=== PATIENT | female | born 1950 | race Caucasian/White ===

== ENCOUNTER 2018-12-14 05:40 | Day surgery (SDC) | payer OTHER ==
[~2018-12-14] VITALS: Ht 172.7 cm; Wt 83.9 kg
--- NOTE | ~2018-12-14 | O ---
[facility] [place] [address] OPERATIVE REPORT Name: AUBREY REESE Room #: 150-6 [facility] M..#: [id number] Admission: 12/14/18 ������������������ Attend Phys: Juan Ramires MD Discharge: ������������������ Date of : 46 Report #: [id number] THIS REPORT FOR: //name// CC: Damaris Ramires DATE OF SERVICE: 12/14/2018 PREOPERATIVE DIAGNOSES: 1. Left hallux varus. 2. Left second hammer toe deformity. 3. Left third toe mallet toe deformity. POSTOPERATIVE DIAGNOSES: 1. Left hallux varus. 2. Left second hammer toe deformity. 3. Left third toe mallet toe deformity. PROCEDURES: 1. Left foot second toe proximal interphalangeal joint arthrodesis with dorsal capsulotomy and tenotomy. 2. Left foot third toe mallet toe repair. 3. Left foot hallux varus repair. SURGEON: Juan Ramires M.D. AGRONOMY INSTRUCTOR: Lisette Agarwal. ANESTHESIA: General. ESTIMATED BLOOD LOSS: Minimal. DRAINS: None. TOURNIQUET TIME: One hour. DESCRIPTION OF PROCEDURE: The patient was brought to the Operating Room, she was placed under general anesthesia. Once under adequate general anesthesia, her left lower extremity was prepped and draped in sterile manner. The extremity was elevated, exsanguinated, tourniquet placed to 300 mmHg. A dorsal incision over the second proximal interphalangeal and the third distal interphalangeal joint was made. The head of the proximal phalanx and the head of the second toe and the head of the middle phalanx on the third toe was then resected with a sagittal saw. The bases of the middle phalanx and the distal phalanx respectively were then achieved. The drill for the Smart Toe implant was then utilized and subsequently the broaches were utilized for each of the [facility] [address] [place] [address] OPERATIVE REPORT Name: AUBREY REESE Room #: 150-6 [facility]..#: [id number] Admission: 12/14/18 ������������������ Attend Phys: Juan Ramires MD Discharge: ������������������ Date of : 46 Report #: [id number]. A 19 implant was used at the proximal interphalangeal joint of the second toe and a size 11 implant for the distal interphalangeal joint was utilized for the third toe. Excellent fixation and alignment was achieved. A dorsal incision in the first webspace was then made and dissection was carried down to the dorsal second metatarsophalangeal joint. A dorsal capsulotomy and tenotomy was performed with a [place] blade as well as the tenotomy scissors. This then did allow excellent repair of the hammertoe and mallet toe deformities respectively. We then proceeded medially and a medial incision over the metatarsophalangeal joint was made, approximately 4 cm in length was dissected down through soft tissue to the joint capsule, which was then incised, releasing the joint capsule to allow reduction of the hallux varus. Excellent reduction was then able to be achieved. Drill holes were placed for the internal brace and the implant was then placed. The FiberTape was then placed utilizing a suture passer. We did not, however, get good hold on the repair in this fashion. This was tried again with a doubled over suture tape and again did not work. Therefore the mini TightRope was then utilized through the same drill holes. Excellent fixation and repair was then able to be achieved utilizing the FiberTape. Once complete, the wound was irrigated copiously and closed with 4-0 Vicryl in the extensor mechanism of the second and third toes. 2-0 Vicryl was used in the subcutaneous tissues and 3-0 nylon for the skin. The wounds were dressed with Xeroform, 4 x 4s, and a sterile soft compressive dressing was placed. Tourniquet was let down just over one hour. Toes were pink and warm with good capillary refill. There were no complications from the procedure. The patient tolerated the procedure well and went to the recovery room without incident. Fluoroscopy was used throughout the case to verify the position and alignment to be satisfactory. Wounds were dressed with Xeroform, 4 x 4s, and sterile soft compressive dressing was placed. Tourniquet was let down approximately one hour. Toes pink and warm with good capillary refill. There were no complications from the procedure. The patient tolerated the procedure well and went to the recovery room without incident. ��������������������������������������������� ���������������������������������������� By: ��������������������������������������������� [id number] Juan Ramires MD /nt
[~2018-12-14 05:40] MED LIST: COREG12.5 MG PO; LEVOXYL25 MCG PO; LISINOPRIL20 MG PO; NORVASC5 MG PO; PRAVACHOL20 MG PO; ROPINIROLE HCL2 M1 PO; VITAMIN D32000 UNI1 PO
[2018-12-14 09:51] VITALS: BP 136/60
[2018-12-14] MEDS ORDERED: PERCOCET 7.5-31 EACH PO (12:38)
[2018-12-14 13:20] VITALS: BP 136/60
--- NOTE | 2018-12-15 07:21 | EKG ---
[place] [address] [facility] [place] [address] ELECTROCARDIOGRAM REPORT Name: AUBREY REESE Room #: DEP [facility]#: [id number] ������������������ Admission: 12/14/18 ������������������ Attend Phys: Juan Ramires MD Discharge: 12/14/18 ������������������ Date of : 46 Report #: [id number] ����������������������������������������������������������������� [id number] THIS REPORT FOR: //name// [facility] Test Date: 2018-12-14 Test Time: 09:45:42 Pat Name: AUBREY REESE Department: Room: 150 6 Gender: F [employer]: corrie : 1950 Requested By: Juan Ramires Order Number: [id number] MD: William Paige Measurements Intervals [place] Rate: 64 P: 46 CO: 159 QRS: -35 QRSD: 99 T: 46 QT: 401 QTc: 414 Interpretive Statements Sinus rhythm Left axis deviation Baseline wander in lead(s) II No previous ECG available for comparison Electronically Signed On 12-15-2018 7:21:48 CDT by William Paige [email or web address] ��������������������������������������������� <ELECTRONICALLY SIGNED> ���������������������������������������� By: William Paige MD, [facility] ��������������������������������������������� 12/15/18 0721 4 William Paige MD, [facility] /EPI
== END 2018-12-14 14:20 | disposition home or self-care (01) ==
LOC: OR 05:40 → TBA 05:40 → OR 11:24
DX: M20.32 Hallux varus (acquired), left foot (principal); M20.42 Other hammer toe(s) (acquired), left foot; M20.5X2 Other deformities of toe(s) (acquired), left foot; I10 Essential (primary) hypertension; E78.00 Pure hypercholesterolemia, unspecified; F17.210 Nicotine dependence, cigarettes, uncomplicated; Z90.49 Acquired absence of other specified parts of digestive tract; Z96.653 Presence of artificial knee joint, bilateral; Z98.890 Other specified postprocedural states; Z96.612 Presence of left artificial shoulder joint; Z79.899 Other long term (current) drug therapy; Z88.2 Allergy status to sulfonamides
CPT/HCPCS: 50010; 50101; 50386; 50951; 55430; 56524; 56526; 56527; 57091; 57180; 62110; 62900; 70005